=== PATIENT | female | born 1960 | race Caucasian/White ===

== ENCOUNTER → 2024-04-02 08:49 | Outpatient (REF) | payer BC, SELFPAY ==
[2024-04-02 11:38] LABS: % Basophils 1.1 % (0-2); % Eosinophils 10.4 % (0-6); % Immature Granulocytes 0.2 % (0-0.5); % Lymphocytes 25.4 % (20.5-51.1); % Monocytes 10.4 % (1.7-9.3); % Neutrophils 52.5 % (42.2-75.2); Absolute Basophils 0.1 10^3/uL (0-0.2); Absolute Eosinophils 0.7 10^3/uL (0-0.7); Absolute Lymphocytes 1.6 10^3/uL (1.2-3.4); Absolute Monocytes 0.7 10^3/uL (0.1-0.6); Absolute Neutrophils 3.3 10^3/uL (1.4-6.5); Hematocrit 40.1 % (37.0-47.0); Hemoglobin 13.7 g/dL (12.0-16.0); Mean Corp Hgb Conc. 34.2 g/dL (33.0-37.0); Mean Corpuscular Hgb 31.6 pg (27.0-31.0); Mean Corpuscular Volume 92.4 fL (81.0-99.0); Mean Platelet Volume 10.3 fL (7.4-10.4); Nucleated Red Blood Cells % 0 %; Platelet Count 282 10^3/uL (130-400); Red Blood Cell Count 4.34 10^6/uL (4.20-5.40); Red Cell Dist. Width 12.3 % (11.5-14.5); White Blood Cell Count 6.3 10^3/uL (4.8-10.8)
[2024-04-02 12:22] LABS: ALT (SGPT) 29 U/L (0-35); AST (SGOT) 34 U/L (14-36); Albumin 4.5 g/dl (3.5-5.0); Alkaline Phosphatase 68 U/L (38-126); Blood Urea Nitrogen 19 mg/dl (7-17); Calcium 9.9 mg/dl (8.4-10.2); Carbon Dioxide 28 mmol/L (22-30); Chloride 102 mmol/L (98-107); Glucose 99 mg/dl (70-99); HDL Cholesterol 79 mg/dl; LDL Cholesterol, Calculated 128 mg/dl; Potassium 4.3 mmol/L (3.5-5.1); Sodium 140 mmol/L (135-145); Total Bilirubin 0.9 mg/dl (0.2-1.3); Total Cholesterol 224 mg/dl (50-199); Triglyceride 85 mg/dl (10-149); Very Low Density Lipoprotein 17 mg/dl (0-30); eGFR > 60.00
[2024-04-02 12:39] LABS: Vitamin D, 25-OH*** 47.6 ng/mL (30-80)
[2024-04-02 12:52] LABS: TSH Reflex To Free T4 1.07 uIU/ml (0.47-4.68)
[2024-04-03 11:02] LABS: CRP, Highly Sensitive 1.56 mg/L
== END ==
LOC: HWLAB 08:49
PROVIDERS: ATTENDING PHYSICIAN Nurse Practitioner Primary Care
DX: I10 Essential (primary) hypertension (principal); E78.2 Mixed hyperlipidemia; E04.1 Nontoxic single thyroid nodule; E55.9 Vitamin D deficiency, unspecified
CPT/HCPCS: 36415; 80053; 80061; 82306; 84443; 85025; 86141

== ENCOUNTER → 2024-04-23 09:04 | Outpatient (REF) | payer BC, SELFPAY | LOC: HWWDC 09:04 | PROVIDERS: ATTENDING PHYSICIAN Nurse Practitioner Primary Care | DX: Z12.31 Encounter for screening mammogram for malignant neoplasm of breast (principal) | CPT/HCPCS: 77063; 77067 ==

== ENCOUNTER → 2024-07-27 12:15 | Outpatient (REF) | payer BC, SELFPAY ==
[2024-07-27 16:45] LABS: % Basophils 1.1 % (0-2); % Eosinophils 8.6 % (0-6); % Immature Granulocytes 0.3 % (0-0.5); % Lymphocytes 33.8 % (20.5-51.1); % Monocytes 11.2 % (1.7-9.3); Absolute Basophils 0.1 10^3/uL (0-0.2); Absolute Eosinophils 0.6 10^3/uL (0-0.7); Absolute Lymphocytes 2.2 10^3/uL (1.2-3.4); Absolute Monocytes 0.7 10^3/uL (0.1-0.6); Hematocrit 42.3 % (37.0-47.0); Hemoglobin 13.7 g/dL (12.0-16.0); Mean Corp Hgb Conc. 32.4 g/dL (33.0-37.0); Mean Corpuscular Hgb 31.6 pg (27.0-31.0); Mean Corpuscular Volume 97.5 fL (81.0-99.0); Mean Platelet Volume 10.4 fL (7.4-10.4); Nucleated Red Blood Cells % 0 %; Platelet Count 294 10^3/uL (130-400); Red Blood Cell Count 4.34 10^6/uL (4.20-5.40); Red Cell Dist. Width 12.8 % (11.5-14.5); White Blood Cell Count 6.6 10^3/uL (4.8-10.8)
[2024-07-27 16:50] LABS: ALT (SGPT) 26 U/L (0-35); AST (SGOT) 30 U/L (14-36); Albumin 4.7 g/dl (3.5-5.0); Alkaline Phosphatase 58 U/L (38-126); Blood Urea Nitrogen 21 mg/dl (7-17); Calcium 9.9 mg/dl (8.4-10.2); Carbon Dioxide 28 mmol/L (22-30); Chloride 103 mmol/L (98-107); Glucose 89 mg/dl (70-99); Potassium 4.2 mmol/L (3.5-5.1); Sodium 137 mmol/L (135-145); Total Bilirubin 0.6 mg/dl (0.2-1.3); Total Protein 7.4 g/dl (6.3-8.2); eGFR > 60.00
[2024-07-27 16:52] LABS: C-Reactive Protein < 5.00 mg/L (0.0-10.00)
[2024-07-27 16:56] LABS: D-Dimer 0.28 ug/mlFEU (0.00-0.50)
[2024-07-27 17:06] LABS: Troponin I < 0.012 ng/ml
[2024-07-27 18:01] LABS: Erythrocyte Sed Rate 10 mm/hour (0-20)
== END ==
LOC: HWLAB 12:15
PROVIDERS: ATTENDING PHYSICIAN Nurse Practitioner Family
DX: R07.2 Precordial pain (principal)
CPT/HCPCS: 36415; 71046; 80053; 84484; 85025; 85379; 85652; 86140; 93005

== ENCOUNTER 2024-07-31 09:25 | Emergency (ER) | payer BC, SELFPAY ==
[2024-07-31 09:30] VITALS: BP 148/93
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
== END 2024-07-31 10:00 | disposition home or self-care (01) ==
LOC: EMR 09:25
PROVIDERS: EMERGENCY PHYSICIAN Emergency Medicine; FAMILY PHYSICIAN Internal Medicine
DX: B02.9 Zoster without complications (principal); I10 Essential (primary) hypertension
CPT/HCPCS: 99283

== ENCOUNTER 2024-10-31 11:29 | Emergency (ER) | payer BC, SELFPAY ==
[2024-10-31 11:30] VITALS: BP 137/104
[2024-10-31 11:46] VITALS: BMI 30.5
--- NOTE | 2024-10-31 11:52 | EDRN ---
Kemi ENGEL in room w/pt.
--- NOTE | 2024-10-31 11:56 | ED.GENMED ---
History of Present Illness
General
Chief Complaint: Abdominal Pain
Source: patient
Exam Limitations: none
Time Seen by Provider: 10/31/24 11:40
History of Present Illness
History of Present Illness:
64yoF with a history of hypertension, GERD, and prior hysterectomy presenting for evaluation of abdominal pain. Patient took her 's Ozempic about 10 days ago. She had nausea and vomiting for 2 days after this. She then was eating very
little over the next week. She had some abdominal discomfort 3 days ago and was able to have a small hard bowel movement. Pain resolved after having the bowel movement. She woke up around 3 AM this morning with cramping pain throughout her lower
abdomen. Pain comes in waves. She tried MiraLAX and magnesium citrate without any relief. She had 1 episode of vomiting around 3 AM but none since. She is otherwise asymptomatic and denies any chest pain, shortness of breath, fevers, dysuria,
difficulty urinating. Previous abdominal surgeries include a hysterectomy as well as a surgery due to an ectopic .
Past History
Past History
ED Past Medical History: HTN
ED Past Surgical History: Gynecological and Tonsilectomy
Social History
Tobacco: Non-smoker
Alcohol: None
Drug: None
Personal:
Living: with family
Family History
Family History: Other (Aneurysm)
Phy Exam
General Physical Exam
General Presentation: well appearing and no apparent distress
General age: appears stated age
General Skin: warm and dry
General Habitus: normal
General Mental: alert
ENT Exam
ENT Exam: normocephalic
Cardiovascular Exam
Cardiovascular Exam: regular rate/rhythm and no murmur
Pulmonary Exam
Pulmonary Exam: lungs clear, no respiratory distress, no rales, no crackles and no rhonchi
Gastrointestinal Exam
Gastrointestinal Exam: soft, non distended and other (Mild generalized tenderness noted. Abdomen soft, non-distended. No rebound or guarding. )
Neurological Exam
Neurological Exam: alert
Coleman Coma Scale
Eye Opening: Spontaneous
Verbal Response: Oriented
Motor Response: Obeys Commands
GCS Total Score: 15
Skin Exam
Skin Exam: normal color and warm/dry
Psychiatric Exam
Psychiatric Exam: normal mood/affect
Course
Orders/Labs/Results
Orders:
Orders
10/31/24 11:53
IV Insert/Care/Rem.- Treatment PRN
10/31/24 11:55
CT Abd/pelvis W Iv Cont Urgent
Comment:
Reason For Exam: lower abd pain, constipation
0.9% Sodium Chloride 500 ml [Nss] 500 ml IV BOLUS
10/31/24 12:00
Complete Blood Count/With Diff Urgent
Comprehensive Metabolic Panel Urgent
Lipase Urgent
10/31/24 12:48
Ketorolac [Toradol] 15 mg IV NOW STA
10/31/24 12:49
Ketorolac [Toradol] 15 mg .ROUTE .STK-MED ONE
Abnormal Lab Results
10/31/24
12:00
MCH 32.0 H pg
(27.0-31.0)
Absolute Monos (auto) 0.7 H 10^3/uL
(0.1-0.6)
Lymphocytes % 18.3 L %
(20.5-51.1)
Glucose 118 H mg/dl
(70-99)
Calcium 10.3 H mg/dl
(8.4-10.2)
10/31/24 12:00
10/31/24 12:00
Vital Signs
Initial and Last Documented VS:
Initial Vital Signs
Temp Pulse Resp BP Pulse Ox
98.0 F 130 16 137/104 98
10/31/24 11:30 10/31/24 11:30 10/31/24 11:30 10/31/24 11:30 10/31/24 11:30
Last Documented Vital Signs
Temp Pulse Resp BP Pulse Ox
98.0 F 88 18 133/92 96
10/31/24 11:30 10/31/24 15:39 10/31/24 15:39 10/31/24 15:39 10/31/24 15:39
MDM/Problems Addressed
Differential Diagnosis Includes:
64yoF here with abd pain and constipation. Only had 1 small BM in the past week. Woke up at 3am with lower abd cramping. Had one episode of vomiting. Urinating normally. HR 130 in triage. Remainder of vitals stable. She is non-toxic appearing. No
signs of peritonitis on abdominal exam. Differential diagnosis includes but is not limited to: constipation, SBO, diverticulitis, colitis
Initial ED plan: Check abdominal labs and CT abdomen. IV fluid bolus. She declines analgesics.
*Critical Care Note
Total Time (30-74mins, 75-104mins- exclusive of procedures): Not Applicable
Update Note
Update Note:
Labs unremarkable including normal white count, renal function, LFTs, and lipase. CT abdomen is negative for acute findings. Patient was able to have a large liquid bowel movement while in the ED. Pain has improved after having a bowel movement.
Pain 1/10 in severity on reassessment. She is stable for discharge. Supportive care discussed. Advised f/u with PCP and ED return precautions discussed. Patient in agreement with plan and was discharged in stable condition.
ED Attending Note
-
Portions of this chart may have been created with voice recognition software.� Occasional wrong word or��sound alike� substitutions may have occurred due to the inherent limitations of voice recognition software.
Discharge Plan
Departure
Patient Disposition: Home (Routine Discharge)
Date of Disposition: 10/31/24
Time of Disposition: 15:07
Patient with high blood pressure during this ER visit?: Yes
Discharge Problem:
Constipation, Abdominal pain
Instructions: Constipation, Adult (DC)
Prescriptions:
No Action
ijnibym-vjufqmbobvasm-fbvvcond 1 TABLET tablet
2 tab PO PRN PRN (Reason: migranes)
escitalopram oxalate 20 MG tablet
20 mg PO DAILY
ibuprofen 600 MG tablet
600 mg PO Q4HPRN PRN (Reason: moderate pain) Qty: 0 0RF
oseltamivir 75 MG capsule
75 mg PO BID
lorazepam 0.5 MG tablet
0.5 mg PO Q4HPRN PRN (Reason: panic attacks) Qty: 6 0RF
valacyclovir [Valtrex] 1 gram tablet
1,000 mg PO TID 10 Days Qty: 30 0RF
Referrals:
Sienna Nicole CRNP [Family Provider] -
Activity Restrictions/Additional Instructions:
Drink plenty of fluids and increase your fiber intake. Take Miralax 1-2x daily as needed for constipation.
Please follow-up with your family doctor. Return to the ER with any new or worsening symptoms including fevers and severe pain.
Interventions
Interventions:
*Risk Screen - Suicide Last Done: 10/31/24 11:30
*General Assessment Last Done: 10/31/24 11:30
*Neglect/Abuse Screening Last Done: 10/31/24 12:05
*ED COVID-19 Vaccine History Last Done: 10/31/24 11:30
*Nursing Disposition Last Done: 10/31/24 15:40
OB-Immnwp-Ciiwevwmeh Assessment Last Done: 10/31/24 12:03
Discharge Date and Time
Discharge Date/Time: 10/31/24 15:41
Print Language: KOREAN
[2024-10-31 12:05] VITALS: BP 126/86
[2024-10-31 12:15] LABS: % Immature Granulocytes 0.3 % (0-0.5); % Lymphocytes 18.3 % (20.5-51.1); % Monocytes 7.7 % (1.7-9.3); % Neutrophils 71.7 % (42.2-75.2); Absolute Basophils 0.1 10^3/uL (0-0.2); Absolute Eosinophils 0.1 10^3/uL (0-0.7); Absolute Lymphocytes 1.7 10^3/uL (1.2-3.4); Absolute Monocytes 0.7 10^3/uL (0.1-0.6); Absolute Neutrophils 6.5 10^3/uL (1.4-6.5); Hematocrit 46.4 % (37.0-47.0); Mean Corp Hgb Conc. 34.5 g/dL (33.0-37.0); Mean Corpuscular Volume 92.8 fL (81.0-99.0); Mean Platelet Volume 10.1 fL (7.4-10.4); Nucleated Red Blood Cells % 0 %; Platelet Count 331 10^3/uL (130-400); Red Cell Dist. Width 12.5 % (11.5-14.5)
--- NOTE | 2024-10-31 12:40 | EDRN ---
Pt states pain is much worse at 7/10, crampy and all over her abd.
[2024-10-31] MEDS: NSS 500 IV (12:44)
[2024-10-31 12:46] LABS: ALT (SGPT) 35 U/L (0-35); AST (SGOT) 30 U/L (14-36); Albumin 4.7 g/dl (3.5-5.0); Alkaline Phosphatase 75 U/L (38-126); Blood Urea Nitrogen 16 mg/dl (7-17); Calcium 10.3 mg/dl (8.4-10.2); Carbon Dioxide 26 mmol/L (22-30); Chloride 105 mmol/L (98-107); Estimated Creatinine Clearance 74 ml/min; Glucose 118 mg/dl (70-99); Lipase 148 U/L (23-300); Potassium 3.9 mmol/L (3.5-5.1); Sodium 142 mmol/L (135-145); Total Bilirubin 0.6 mg/dl (0.2-1.3); Total Protein 7.7 g/dl (6.3-8.2); eGFR > 60.00
[2024-10-31] MEDS: TORADOL 15 MG IV (12:50)
--- NOTE | 2024-10-31 13:15 | EDRN ---
Pt states pain is now only in lower abd at 5/10, described as crampy. Pt OOB to BR to attempt a BM at this time.
[2024-10-31 13:25] VITALS: BP 139/96
[2024-10-31 14:20] VITALS: BP 146/99
[2024-10-31 15:39] VITALS: BP 133/92
== END 2024-10-31 15:41 | disposition home or self-care (01) ==
LOC: EMR 11:29
PROVIDERS: Physician Assistant; EMERGENCY PHYSICIAN Emergency Medicine; FAMILY PHYSICIAN Nurse Practitioner Primary Care
DX: K59.00 Constipation, unspecified (principal); R10.9 Unspecified abdominal pain; I10 Essential (primary) hypertension; K21.9 Gastro-esophageal reflux disease without esophagitis; Z90.710 Acquired absence of both cervix and uterus
CPT/HCPCS: 96374; 96361; 99284; 74177; 80053; 83690; 85025; Q9967

== ENCOUNTER → 2025-05-03 09:26 | Outpatient (REF) | payer BC, SELFPAY ==
[2025-05-03 11:56] LABS: Urine Character Clear (Clear)
[2025-05-03 11:58] LABS: Hematocrit 41.7 % (37.0-47.0); Hemoglobin 13.8 g/dL (12.0-16.0); Mean Corp Hgb Conc. 33.1 g/dL (33.0-37.0); Mean Corpuscular Volume 94.6 fL (81.0-99.0); Nucleated Red Blood Cells % 0 %; Platelet Count 297 10^3/uL (130-400); Red Cell Dist. Width 12.9 % (11.5-14.5)
[2025-05-03 12:07] LABS: ALT (SGPT) 27 U/L (0-35); AST (SGOT) 30 U/L (14-36); Albumin 4.7 g/dl (3.5-5.0); Alkaline Phosphatase 63 U/L (38-126); Blood Urea Nitrogen 19 mg/dl (7-17); Calcium 9.8 mg/dl (8.4-10.2); Carbon Dioxide 27 mmol/L (22-30); Chloride 105 mmol/L (98-107); Glucose 99 mg/dl (70-99); HDL Cholesterol 102 mg/dl; LDL Cholesterol, Calculated 109 mg/dl; Potassium 3.9 mmol/L (3.5-5.1); Sodium 139 mmol/L (135-145); Total Protein 7.8 g/dl (6.3-8.2); Very Low Density Lipoprotein 15 mg/dl (0-30); eGFR > 60.00
[2025-05-03 12:26] LABS: Vitamin D, 25-OH*** 38.0 ng/mL (30-80)
== END ==
LOC: HWLAB 09:26
PROVIDERS: ATTENDING PHYSICIAN Nurse Practitioner Primary Care
DX: Z86.2 Personal history of diseases of the blood and blood-forming organs and certain disorders involving the immune mechanism (principal); I10 Essential (primary) hypertension; E04.1 Nontoxic single thyroid nodule; E78.2 Mixed hyperlipidemia; E55.9 Vitamin D deficiency, unspecified
CPT/HCPCS: 36415; 80053; 80061; 81003; 82306; 84443; 85025

== ENCOUNTER → 2025-05-09 07:01 | Outpatient (REF) | payer SELFPAY | LOC: HWRAD 07:01 | PROVIDERS: ATTENDING PHYSICIAN Nurse Practitioner Primary Care | DX: E78.2 Mixed hyperlipidemia (principal) | CPT/HCPCS: 75571 ==

== ENCOUNTER → 2025-05-21 12:58 | Outpatient (REF) | payer BC, SELFPAY | LOC: HWRCS 12:58 | PROVIDERS: ATTENDING PHYSICIAN Nurse Practitioner Primary Care | DX: I10 Essential (primary) hypertension (principal) | CPT/HCPCS: 93306 ==

== ENCOUNTER → 2025-06-03 12:38 | Outpatient (REF) | payer BC, SELFPAY | LOC: HWRAD 12:38 | PROVIDERS: ATTENDING PHYSICIAN Nurse Practitioner Adult Health | DX: M25.551 Pain in right hip (principal) | CPT/HCPCS: 73502 ==

== ENCOUNTER → 2025-06-11 08:48 | Outpatient (REF) | payer BC, SELFPAY | LOC: HWWDC 08:48 | PROVIDERS: ATTENDING PHYSICIAN Nurse Practitioner Primary Care | DX: Z12.31 Encounter for screening mammogram for malignant neoplasm of breast (principal) | CPT/HCPCS: 77063; 77067 ==